=== PATIENT | male | born 1990 | race Caucasian/White ===

== ENCOUNTER 2023-10-11 13:10 | Emergency (ER) | payer OTHER ==
[~2023-10-11] VITALS: Ht 172.7 cm; Wt 77.8 kg
[2023-10-11 13:23] VITALS: BP 112/70; PULSE 69; RESP 20; TEMP 98; O2SAT 97
[2023-10-11 14:02] LABS: APPEARANCE,URINE CLEAR (CLEAR); BILIRUBIN,URINE NEGATIVE (NEGATIVE); BLOOD, URINE NEGATIVE (NEGATIVE); COLOR,URINE YELLOW (YELLOW); LEUKOCYTE ESTERASE ,URINE NEGATIVE (NEGATIVE); NITRITE, URINE NEGATIVE (NEGATIVE); PROTEIN,URINE NEGATIVE (NEGATIVE); UGLUCOSE NEGATIVE (NEGATIVE); UROBILINOGEN,URINE 0.2 EU/dL (0.2 - 1)
[2023-10-11] MEDS: KETOROLAC 30 MG/ML VIAL IM ONE (14:04)
[2023-10-11] MEDS ORDERED: CAPS1ADH5 TP (15:05)
[2023-10-11] MEDS ORDERED: DICL100G32 TP (15:05)
[2023-10-11] MEDS ORDERED: NAPR-1704 PO (15:05)
[2023-10-11 15:19] VITALS: BP 108/70; PULSE 72; RESP 20; TEMP 98; O2SAT 99
== END 2023-10-11 15:18 | disposition home or self-care (01) ==
LOC: MED 13:10
DX: S39.012A Strain of muscle, fascia and tendon of lower back, initial encounter (principal); M25.562 Pain in left knee; Z79.899 Other long term (current) drug therapy; X58.XXXA Exposure to other specified factors, initial encounter; Y93.89 Activity, other specified; Y92.89 Other specified places as the place of occurrence of the external cause; Y99.8 Other external cause status
CPT/HCPCS: 72100; 73562; 81003; 96372; 99284; J1885